=== PATIENT | female | born 1980 | race Caucasian/White ===

== ENCOUNTER 2021-11-02 17:38 | Emergency (ER) | payer MEDICAID, OTHER ==
[2021-11-02 17:43] VITALS: BP 109/58
[2021-11-02] MEDS ORDERED: TETANUS/DIPHTHERIA/PERTUSSIS 0.5 ML SYRINGE IM ONE (17:49)
--- NOTE | 2021-11-02 18:17 | ED Physician Documentation ---
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 Uncertain of last tetanus status. She has had a difficult time getting the wound to stop bleeding. [id number] Review of Systems Constitutional: reports: Reviewed and negative Cardiac: reports: Reviewed and negative Respiratory: reports: Reviewed and negative GI: reports: Reviewed and negative Skin: reports: Laceration (s) PD PAST MEDICAL HISTORY - Present Medications Home Medications: Ambulatory Orders Medication Instructions Recorded Confirmed No Known Home Medications 11/02/21 11/02/21 - Allergies Allergies/Adverse Reactions: Allergies Allergy/AdvReac Type Severity Reaction Status Date / Time cephalexin [From Keflex] Allergy Hives Verified 11/02/21 17:44 erythromycin base AdvReac Nausea Verified 11/02/21 17:44 PD ED PE EXPANDED - Extremities Extremities: Left finger(s) (Linear skin avulsion distal tip radial side left index finger not amenable to primary closure. Normal flexion extension at DIP. Sensation preserved.) Results - Vitals Vitals: Vital Signs - 24 hr 11/02/21 17:41 Temperature 36.4 C L Heart Rate 64 Respiratory 16 Rate Blood Pressure 109/58 L O2 Saturation 100 PD MEDICAL DECISION MAKING - ED course Complexity details: considered differential, d/w patient ED course: 41-year-old female presents emergency department for evaluation of an avulsion laceration to the distal tip of her left index finger. This was a flap laceration where the flap is now missing. Not amenable to primary closure. Wound was thoroughly cleansed with saline. Gelfoam applied to the wound base and sterile gauze. Discussed routine wound care. Tetanus was updated today. [employer] [place] [id number] completed Departure - Departure Disposition: 01 Home, Self Care Clinical Impression: Avulsion of skin of finger Qualifiers: Encounter type: initial encounter Qualified Code(s): S61.209A - Unspecified open wound of unspecified finger without damage to nail, initial encounter Condition: Stable Record reviewed to determine appropriate education?: Yes Comments: Silva the laceration to your skin is an avulsion. This is simply a deeper abrasion. This is not something that we are able to close with sutures. We did place a product on the wound called Gelfoam. This will adhere to the wound bed allow the clot to form. It will simply fall away over the next 4 to 5 days. Your tetanus was updated and should be good for the next 7 to 10 years. This wound will heal over the next 1 to 2 weeks from inside out. If at any point you have concerns of infection, fevers, redness milky drainage finger swelling or increased pain then please return to the ER for second evaluation.
== END 2021-11-02 18:24 | disposition home or self-care (01) ==
LOC: ED 17:38
DX: S61.209A Unspecified open wound of unspecified finger without damage to nail, initial encounter (principal); W26.0XXA Contact with knife, initial encounter; Y93.G1 Activity, food preparation and clean up; Y99.0 Civilian activity done for income or pay; Z23 Encounter for immunization; Z71.85 Encounter for immunization safety counseling
CPT/HCPCS: 1040M; 90471; 90715; 99282; 99283

== ENCOUNTER 2022-06-25 14:03 | Emergency (ER) | payer MEDICAID, OTHER ==
[2022-06-25] MEDS ORDERED: diphenhydrAMINE INJ 50 MG/ML VIAL IVP STA (16:15)
[2022-06-25] MEDS ORDERED: METOCLOPRAMIDE 10 MG/2 ML VIAL IVP STA (16:15)
[2022-06-25] MEDS ORDERED: SODIUM CHLORIDE 0.9% 1,000 ML IV STA (16:15)
[2022-06-25 16:28] LABS: BASOPHILS % (AUTO) 0.5 %; EOSINOPHILS # (AUTO) 0.1 10^3/uL (0.0-0.7); HGB - HEMOGLOBIN 13.7 g/dL (12.0-16.0); LYMPHOCYTES # (AUTO) 1.7 10^3/uL (1.5-3.5); LYMPHOCYTES % (AUTO) 19.7 %; MEAN CORPUSCULAR HGB CONC 33.4 g/dL (32.0-36.0); MEAN CORPUSCULAR VOLUME 86.7 fL (81.0-99.0); MEAN PLATELET VOLUME 9.8 fL (7.9-10.8); MONOCYTES # (AUTO) 0.6 10^3/uL (0.0-1.0); MONOCYTES % (AUTO) 6.5 %; NEUTROPHILS # (AUTO) 6.3 10^3/uL (1.5-6.6); NEUTROPHILS % (AUTO) 72.1 %; PLT - PLATELET COUNT 371 10^3/uL (130-450); RED BLOOD COUNT 4.73 10^6/uL (4.20-5.40); RED CELL DISTRIBUTION WIDTH 12.2 % (12.0-15.0); WHITE BLOOD COUNT 8.8 x10^3/uL (4.8-10.8)
--- NOTE | 2022-06-25 16:35 | ED Physician Documentation ---
PD HPI HEADACHE - Stated complaint Stated Complaint: FACIAL NUMBNESS - Chief complaint Chief Complaint: Neuro - History obtained from History obtained from: Patient - Additional information Additional information: Patient is a 41-year-old female presenting for evaluation of frontal headaches that she has been having for the past 2 weeks since falling and hitting her head on ice. She was seen at the walk-in clinic and diagnosed with a concussion. She did not have imaging done. She has been using [id number] medications with minimal improvement.Additionally today she noticed an area of numbness to the left forehead. She denies weakness. She denies visual disturbance. She denies numbness elsewhere. She does report having some mild light sensitivity. No nausea or vomiting. No fever, cough, chest pain or difficulty breathing. She denies concerns for . Review of Systems Constitutional: denies: Fever Nose: denies: Congestion Cardiac: denies: Chest pain / pressure Respiratory: denies: Dyspnea GI: denies: Abdominal Pain : denies: Dysuria Musculoskeletal: denies: Back pain Neurologic: reports: Headache PD PAST MEDICAL HISTORY - Present Medications Home Medications: Ambulatory Orders Medication Instructions Recorded Confirmed No Known Home Medications 11/02/21 06/25/22 - Allergies Allergies/Adverse Reactions: Allergies Allergy/AdvReac Type Severity Reaction Status Date / Time cephalexin [From Keflex] Allergy Hives Verified 06/25/22 14:26 erythromycin base AdvReac Nausea Verified 06/25/22 14:26 PD ED PE NORMAL - General General: Alert and oriented X 3, No acute distress, Well developed/nourished - HEENT HEENT: Atraumatic, PERRL, EOMI, Moist mucous membranes, Pharynx benign - Neck Neck: Supple, no meningeal sign, No bony TTP, C-Spine cleared by NEXUS criteria - Cardiac Cardiac: RRR, No murmur - Respiratory Respiratory: No respiratory distress, Clear bilaterally - Abdomen Abdomen: Soft, Non tender - Derm Derm: Warm and dry - Neuro Neuro: Alert and oriented X 3, manager operating 2-12 intact, No motor deficit, Normal speech, Other (Normal finger-nose bilaterally, normal unassisted gait). No: No sensory deficit (Mild decrease sensation to left forehead When compared to right,) Eye Opening: Spontaneous Motor: Obeys Commands Verbal: Oriented GCS Score: 15 Results - Vitals Vitals: Vital Signs - 24 hr 06/25/22 06/25/22 14:18 16:55 Temperature 36.5 C Heart Rate 85 71 Respiratory 16 16 Rate Blood Pressure 174/92 H 149/92 H O2 Saturation 100 99 Oxygen O2 Source Room air - Labs Labs: Laboratory Tests 06/25/22 06/25/22 16:24 16:24 WBC 8.8 RBC 4.73 Hgb 13.7 Hct 41.0 MCV 86.7 MCH 29.0 MCHC 33.4 RDW 12.2 Plt Count 371 MPV 9.8 Neut # (Auto) 6.3 Lymph # (Auto) 1.7 [place] # (Auto) 0.6 Eos # (Auto) 0.1 Baso # (Auto) 0.0 Absolute Nucleated RBC 0.00 Nucleated RBC % 0.0 Sodium 137 Potassium 4.3 Chloride 102 Carbon Dioxide 27 Anion Gap 8.0 BUN 9 Creatinine 0.7 Estimated GFR (MDRD) 93 Glucose 103 H Calcium 9.2 Total Bilirubin 0.5 AST 25 ALT 25 Alkaline Phosphatase 57 Total Protein 7.4 Albumin 3.9 Globulin 3.5 Albumin/Globulin Ratio 1.1 PD Medical Decision Making - ED course Complexity details: reviewed results, re-evaluated patient, d/w patient ED course: Patient is a 41-year-old presenting for evaluation of frequent headaches after a head injury. She reports mild paresthesia to the left upper face but otherwise does not have any deficits noted on exam. I do not feel this is suggestive of a ischemic event. CT of the brain was obtained which is negative for any intracranial bleed. Patient did receive medications for a migraine and is feeling better.She is ambulatory and has normal motor function.Patient counseled on need for close follow-up with her PCP as well as concerning symptoms to return for. Departure - Departure Disposition: 01 Home, Self Care Clinical Impression: Headache, Head injury, Facial paresthesia Condition: Stable Instructions: ED Head Injury Closed, ED Headache Migraine Comments: Your head CT does not show any signs of intracranial bleeding or other abnormalities from your head injury.He did receive medications for a migraine. I would recommend close follow-up with your primary care doctor. I would continue with rest and hydration. If you have any worsening symptoms please consider return to the ER.
[2022-06-25 16:40] LABS: ALBUMIN 3.9 g/dL (3.2-5.5); ALBUMIN/GLOBULIN RATIO 1.1 (1.0-2.2); BILIRUBIN,TOTAL 0.5 mg/dL (0.2-1.0); CALCIUM 9.2 mg/dL (8.5-10.3); CREATININE 0.7 mg/dL (0.4-1.0); POTASSIUM 4.3 mmol/L (3.5-5.0); TOTAL PROTEIN 7.4 g/dL (6.7-8.2)
[2022-06-25] MEDS ORDERED: KETOROLAC 30 MG/ML VIAL IVP STA (17:14)
--- NOTE | 2022-06-25 17:23 | CT Report ---
PROCEDURE: HEAD WO INDICATIONS: head injury/headaches x 2 weeks TECHNIQUE: Noncontrast 4.5 mm thick angled axial sections acquired from the foramen magnum to the vertex. For r adiation dose reduction, the following was used: automated exposure control, adjustment of mA and/or kV according to patient size. COMPARISON: None. FINDINGS: Image quality: Excellent. CSF spaces: Basal cisterns are patent. No extra-axial fluid collections. Ventricles are normal in size and shape. Brain: No midline shift. No intracranial masses or hemorrhage. Duarte-white matter interface is norm al. Skull and face: Calvarium and visualized facial bones are intact, without suspicious lesions. Sinuses: Visualized sinuses and mastoids are clear. IMPRESSION: No imaging explanation is found for the patient's presenting symptoms. No intracranial hemorrhage is seen. No significant intracranial abnormality is seen. Reviewed by: Ed Kimble MD on 06/25/2022 4:22 PM [facility] Approved by: dE Kimble MD on 06/25/2022 4:22 PM [facility] Station ID: [id number]
[2022-06-25 18:18] VITALS: BP 122/90
== END 2022-06-25 18:18 | disposition home or self-care (01) ==
LOC: ED 14:03
DX: S09.90XA Unspecified injury of head, initial encounter (principal); W00.0XXA Fall on same level due to ice and snow, initial encounter; R51.9 Headache, unspecified; R20.2 Paresthesia of skin
CPT/HCPCS: 36415; 70450; 80053; 85025; 96374; 96375; 99284; J1200; J2765

== ENCOUNTER 2022-12-17 09:00 | Outpatient (CLI) | payer OTHER | END 2022-12-17 09:15 | disposition home or self-care (01) | LOC: LAB.N 09:00 | PROVIDERS: ATTEND Nurse Practitioner | DX: N39.0 Urinary tract infection, site not specified (principal) | CPT/HCPCS: 87086; 87181 ==